=== PATIENT | female | born 1930 | race African-American/Black ===

== ENCOUNTER 2020-02-17 07:56 | Outpatient (CLI) | payer MEDICARE, OTHER ==
[2020-02-17] VITALS (7 sets, daily range): BP systolic 129–154; BP diastolic 80–94; PULSE 75–82
[~2020-02-17] VITALS: Ht 160 cm; Wt 46.1 kg
[~2020-02-17 07:56] MED LIST: ACULAR 10 ML10 ML; ASPIRIN 32325 MG/TAB PO; CALCITRATE 3151 TAB PO; CEPHALEXIN500 M1 PO; HCTZ 25MG TAB25 MG PO; LEVOXYL0.075 MG PO; MICARDIS40 MG PO; NATURE'S BLE1000 MCG; PREDFORTE5ML; PRINIVIL5 MG PO; REFRESH PLUS 00.4 M1 OP; VIGAMOX 0.5% 3 M3 ML OP; VITAMINC250CH; VITAMINE200; ZINC SULFATE220 M2 PO
[2020-02-17 08:26] LABS: HEMATOCRIT 41.9 % (37.0-47.0); HEMOGLOBIN 14.2 g/dl (12.5-16.0); MEAN CELL VOLUME 92 fl (80.0-100.0); MEAN CORPUSCULAR HEMOGLOBIN 31 pg (27.0-31.0); MEAN CORPUSCULAR HGB CONC 34 g/dl (33.0-37.0); MEAN PLATELET VOLUME 8.6 fl (7.4-10.4); PLATELET COUNT 176 K/mm3 (130-400); RED BLOOD COUNT 4.54 M/mm3 (4.10-5.30); REDCELL DISTRIBUTION WIDTH-CV 12.3 % (11.5-14.5)
[2020-02-17] MEDS ORDERED: SPIRIVA RE2.5 MCG/Ac IH (08:28)
[2020-02-17] MEDS ORDERED: CARDIZEM CD 12120 MG PO (08:29)
[2020-02-17 08:30] LABS: INR 1.3 (0.8-3.0); PROTHROMBIN TIME 14.5 SECONDS (9.7-12.8)
[2020-02-17] MEDS ORDERED: LASIX 20MG TABL20 MG PO (08:30)
[2020-02-17] MEDS ORDERED: GLUCOSAMINE 1000 PO (08:31)
[2020-02-17] MEDS ORDERED: K-DUR20 MEQ PO (08:32)
[2020-02-17] MEDS ORDERED: LOPRESSOR 550 MG/TAB PO (08:32)
[2020-02-17] MEDS ORDERED: XARELTO15 MG PO (08:34)
[2020-02-17 08:36] LABS: CALCIUM 10.1 mg/dL (8.4-10.2); CREATININE, serum 1.15 (0.52-1.25)
== END 2020-02-17 11:50 | disposition home or self-care (01) ==
LOC: COL.RAD 07:56
PROVIDERS: Internal Medicine Cardiovascular Disease
DX: I08.0 Rheumatic disorders of both mitral and aortic valves (principal); I44.0 Atrioventricular block, first degree
CPT/HCPCS: J2704